=== PATIENT | female | born 1955 | race Caucasian/White ===

== ENCOUNTER 2017-07-01 14:05 | Emergency (ER) | payer OTHER ==
[~2017-07-01] VITALS: Ht 154.9 cm; Wt 47.6 kg
[~2017-07-01 14:05] MED LIST: B Complex1 EAC2 PO; FAMO10 PO; HYDCHL25; HYDCHL25 PO; Hydrochlorothia25 MG PO; LEVFLO500 PO; MAGCHL64ER PO; METO25ER PO; METO50 PO; METO50ER; OMEP20ER PO; PHENA200 PO; RAMI5; THIA100 PO; TRAZ100; VITAMIN D-32000 UNIT PO
[2017-07-01 15:49] LABS: BASOPHILS ABSOLUTE AUTO 0.03 K/mm3 (0.00-0.23); BASOPHILS PERCENT AUTO 1 % (0-2); EOSINOPHILS ABSOLUTE AUTO 0.09 K/mm3 (0.00-0.68); EOSINOPHILS PERCENT AUTO 2 % (0-6); Hematocrit 24.5 % (33.0-51.0); Hemoglobin 8.6 g/dL (11.5-16.0); IMMATURE GRAN ABSOLUTE AUTO 0.02 K/mm3 (0.00-0.10); IMMATURE GRAN PERCENT AUTO 0 % (0-1); LYMPHOCYTES ABSOLUTE AUTO 0.98 K/mm3 (0.84-5.20); LYMPHOCYTES PERCENT AUTO 17 % (21-46); MONOCYTES ABSOLUTE AUTO 0.54 K/mm3 (0.16-1.47); MONOCYTES PERCENT AUTO 9 % (4-13); Mean Corpuscular HGB 37.9 pg (26.0-34.0); Mean Corpuscular HGB Conc 35.1 g/dL (31.5-36.5); Mean Corpuscular Volume 108 fL (80-100); Mean Platelet Volume 10.8 fL (9.1-12.4); NEUTROPHILS ABSOLUTE AUTO 4.16 K/mm3 (1.96-9.15); NEUTROPHILS PERCENT AUTO 72 % (41-73); Platelet Count 76 K/mm3 (150-400); RDW Coefficient Variation 12.3 % (11.7-14.2); RDW Standard Deviation 48.6 fL (35.1-46.3); Red Blood Cell Count 2.27 M/mm3 (3.80-5.20); White Blood Cell Count 5.82 K/mm3 (4.00-11.30)
[2017-07-01 16:17] LABS: Alanine Aminotransfer (ALT/SGP 43 U/L (12-78); Albumin, Blood 3.3 g/dL (3.4-5.0); Albumin/Globulin Ratio 0.8 (0.8-1.8); Alk Phos 147 U/L (50-136); Anion Gap 11 mmol/L (6-16); Aspartate Aminotrans (AST/SGOT 128 U/L (12-37); Bilirubin, Total 8.6 mg/dL (0.1-1.0); Blood Urea Nitrogen 9 mg/dL (8-24); CO2, Blood 24 mmol/L (21-32); Chloride, Blood 94 mmol/L (98-108); Creatinine, Blood 0.64 mg/dL (0.40-1.00); Globulin, Blood 4.3 g/dL (2.2-4.0); Glomerular Filtration Rate >60 (60-); Glucose, Blood 94 mg/dL (70-99); Potassium, Blood 3.9 mmol/L (3.5-5.5); Sodium, Blood 129 mmol/L (136-145); Total Protein, Blood 7.6 g/dL (6.4-8.2)
[2017-07-01 17:22] LABS: Bilirubin, Urine Neg (Neg); Blood, Urine Neg (Neg); Glucose Qualitative, Urine Neg (Neg); Ketones, Urine Neg (Neg); Leukocyte Esterase, Urine 1+ (Neg); Nitrite, Urine Neg (Neg); Protein, Urine Neg (Neg); Specific Gravity, Urine 1.005 (1.003-1.022); Urobilinogen, Urine NORM (Normal)
[2017-07-01 17:30] LABS: Appearance, Urine Clear (Clear); Color, Urine Yellow (P-Yellow)
[2017-07-01 17:31] LABS: Bacteria Few /hpf; Red Blood Cells, Urine 0-2 /hpf (0-2); Squamous Epithelial Cells Few /hpf (Few)
[2017-07-01] MEDS ORDERED: Zofran Odt8 MG SL (22:42)
[2017-07-01 23:19] LABS: International Normalized Ratio 1.78; Prothrombin Time Results 18.8 Sec (9.7-11.5)
[2018-03-31] MEDS ORDERED: Hair, Skin & N1 EACH PO (12:56)
[2018-03-31] MEDS ORDERED: LOSARTAN POTAS100 MG PO (12:57)
[2018-03-31] MEDS ORDERED: ACID REDUCER 1150 MG PO (12:57)
[2018-03-31] MEDS ORDERED: Vitamin D400 UNI1 PO (12:58)
[2018-03-31] MEDS ORDERED: Ferrous Sulfat325 M2 (12:59)
[2018-03-31] MEDS ORDERED: CHOL10002 (13:00)
[2018-03-31] MEDS ORDERED: CYAN500 (13:01)
[2018-03-31] MEDS ORDERED: FISH OIL 1,001000 MG (13:01)
== END 2017-07-01 23:10 | disposition home or self-care (01) ==
LOC: ER 14:05
PROVIDERS: Emergency Medicine
DX: K70.9 Alcoholic liver disease, unspecified (principal); D64.9 Anemia, unspecified; D69.6 Thrombocytopenia, unspecified; Z79.899 Other long term (current) drug therapy; Z90.49 Acquired absence of other specified parts of digestive tract
CPT/HCPCS: 36415; 71046; 74177; 80053; 81001; 83690; 85025; 85610; 85730; 87086; 96360; 99284; G0480; J7030; Q9967

== ENCOUNTER 2017-09-14 11:56 | Day surgery (SDC) | payer OTHER ==
[~2017-09-14] VITALS: Ht 154.9 cm; Wt 50.4 kg
[~2017-09-14 11:56] MED LIST changes: +Zofran Odt8 MG SL
[2017-09-14] MEDS ORDERED: LOSA25 (12:28)
[2017-09-14] MEDS ORDERED: IRON150C (12:29)
[2017-09-14] MEDS ORDERED: RANI150EL (12:29)
[2017-09-14] MEDS ORDERED: HYDPAM50 (12:29)
== END 2017-09-14 15:00 | disposition home or self-care (01) ==
LOC: ORSCSDS 11:56
PROVIDERS: Internal Medicine Gastroenterology
PROC: 0DB48ZX Excision of Esophagogastric Junction, Via Natural or Artificial Opening Endoscopic, Diagnostic (ICD-10-PCS; principal; 2017-09-14 13:30)
DX: K70.30 Alcoholic cirrhosis of liver without ascites (principal); B37.81 Candidal esophagitis; K76.6 Portal hypertension; K31.89 Other diseases of stomach and duodenum; K44.9 Diaphragmatic hernia without obstruction or gangrene; K22.2 Esophageal obstruction; I10 Essential (primary) hypertension; Z87.891 Personal history of nicotine dependence; Z79.899 Other long term (current) drug therapy
CPT/HCPCS: 88305; 88312; J7120

== ENCOUNTER → 2019-12-14 | Outpatient (CLI) | payer OTHER ==
[~2019-12-14] MED LIST changes: +ACID REDUCER 1150 MG PO; +Aldactone100 MG PO; +CHOL10002; +CYAN500; +FISH OIL 1,001000 MG; +FURO20 PO; +Ferrous Sulfat325 M2; +HYDPAM50; +Hair, Skin & N1 EACH PO; +IRON150C; +LOSA25; +LOSARTAN POTAS100 MG PO; +RANI150EL; +Vitamin D400 UNI1 PO; +ZOLP10 PO
[2019-12-14 09:40] LABS: Source, Urine Clean Catch
[2019-12-14 12:58] LABS: Bilirubin, Urine Neg (Neg); Blood, Urine Neg (Neg); Glucose Qualitative, Urine Neg (Neg); Ketones, Urine Neg (Neg); Leukocyte Esterase, Urine Neg (Neg); Nitrite, Urine Neg (Neg); Protein, Urine Neg (Neg); Specific Gravity, Urine 1.005 (1.003-1.022); Urobilinogen, Urine NORM (Normal)
[2019-12-14 13:08] LABS: Appearance, Urine Clear (Clear); Color, Urine Yellow (P-Yellow)
== END | disposition home or self-care (01) ==
LOC: LAB SHORT 09:37 → LAB 09:37
PROVIDERS: Internal Medicine Gastroenterology
DX: R10.31 Right lower quadrant pain (principal); R10.32 Left lower quadrant pain
CPT/HCPCS: 81003

== ENCOUNTER 2019-12-31 11:30 | Day surgery (SDC) | payer OTHER ==
[~2019-12-31] VITALS: Ht 154.9 cm; Wt 48.6 kg
--- NOTE | 2019-12-31 13:57 | NUR ---
12/31/19 1357 Sloane Cole PT SITTING COMFORTABLY IN CHAIR WITH ASHWINI AT SIDE. BP MAINTAINING 89/52, NO SYMPTOMS. WILL CONTINUE TO MONITOR
== END 2019-12-31 14:15 | disposition home or self-care (01) ==
LOC: ORSCSDS 11:30
PROVIDERS: Internal Medicine Gastroenterology
PROC: 0DB68ZX Excision of Stomach, Via Natural or Artificial Opening Endoscopic, Diagnostic (ICD-10-PCS; principal; 2019-12-31 13:00)
DX: K74.69 Other cirrhosis of liver (principal); K25.9 Gastric ulcer, unspecified as acute or chronic, without hemorrhage or perforation; K29.80 Duodenitis without bleeding; K76.6 Portal hypertension; K31.89 Other diseases of stomach and duodenum; Z13.810 Encounter for screening for upper gastrointestinal disorder; D69.6 Thrombocytopenia, unspecified; Z87.891 Personal history of nicotine dependence; Z79.899 Other long term (current) drug therapy
CPT/HCPCS: 87081; J2250; J2704; J7120

== ENCOUNTER 2020-11-26 12:25 | Inpatient (IN) | payer OTHER ==
[~2020-11-26] VITALS: Ht 160 cm; Wt 58.4 kg
[~2020-11-26 12:25] MED LIST changes: +ALDACTONE100 MG PO; +CONSTULOSE10 GM/155 PO
[2020-11-26 13:35] LABS: BASOPHILS ABSOLUTE AUTO 0.04 K/mm3 (0.00-0.23); BASOPHILS PERCENT AUTO 0 % (0-2); EOSINOPHILS ABSOLUTE AUTO 0.22 K/mm3 (0.00-0.68); EOSINOPHILS PERCENT AUTO 1 % (0-6); IMMATURE GRAN ABSOLUTE AUTO 0.17 K/mm3 (0.00-0.10); IMMATURE GRAN PERCENT AUTO 1 % (0-1); LYMPHOCYTES ABSOLUTE AUTO 1.26 K/mm3 (0.84-5.20); LYMPHOCYTES PERCENT AUTO 8 % (21-46); MONOCYTES ABSOLUTE AUTO 1.82 K/mm3 (0.16-1.47); MONOCYTES PERCENT AUTO 11 % (4-13); Mean Corpuscular HGB 30.7 pg (26.0-34.0); Mean Corpuscular HGB Conc 31.6 g/dL (31.5-36.5); Mean Corpuscular Volume 97 fL (80-100); Mean Platelet Volume 10.2 fL (9.1-12.4); NEUTROPHILS ABSOLUTE AUTO 13.08 K/mm3 (1.96-9.15); NEUTROPHILS PERCENT AUTO 79 % (41-73); NRBC ABSOLUTE 0.11 K/mm3 (0.00-0.02); NRBC Auto 0.7 /100 WBC (0.0-0.2); Platelet Count 188 K/mm3 (150-400); RDW Coefficient Variation 15.1 % (11.7-14.2); RDW Standard Deviation 52.8 fL (35.1-46.3); Red Blood Cell Count 1.37 M/mm3 (3.80-5.20); White Blood Cell Count 16.59 K/mm3 (4.00-11.30)
[2020-11-26 13:38] LABS: Base Excess Venous -9.4 mmol/L; Bicarbonate Venous 17.2 mmol/L (24.0-30.0); PCO2 Venous 28.3 mmHg (38-42); PO2 Venous 132 mmHg (38-42); pH Blood Venous 7.36 (7.34-7.37)
[2020-11-26] MEDS ORDERED: NAPR500 PO (13:39)
[2020-11-26 13:41] LABS: Hemoglobin 4.2 g/dL (11.5-16.0)
[2020-11-26 13:42] LABS: Hematocrit 13.3 % (33.0-51.0)
[2020-11-26] MEDS ORDERED: BACLOFEN10 M4 PO (13:46)
[2020-11-26] MEDS ORDERED: FUROSEMIDE20 MG PO (13:47)
[2020-11-26] MEDS ORDERED: SPIRONOLACTONE50 MG PO (13:47)
[2020-11-26 13:54] LABS: International Normalized Ratio 1.55; Prothrombin Time Results 16.3 Sec (9.7-11.5)
[2020-11-26 14:09] LABS: Albumin/Globulin Ratio 0.7 (0.8-1.8); Bilirubin, Total 2.1 mg/dL (0.1-1.0); Bun/Creatinine Ratio 41.9 (12.0-20.0); Calcium, Blood 7.6 mg/dL (8.5-10.1); Creatinine, Blood 1.29 mg/dL (0.40-1.00); Globulin, Blood 2.9 g/dL (2.2-4.0); Potassium, Blood 6.7 mmol/L (3.5-5.5); Total Protein, Blood 4.9 g/dL (6.4-8.2)
--- NOTE | 2020-11-26 18:08 | NUR ---
ARRIVAL TO ICU PT ARRIVES TO ICU FROM ER FOR ACUTE ANEMIA AT 1717. PT A&OX 4. ANSWERS ALL QUESTIONS APPROPRIATELY, FOLLOWS COMMANDS. REPORTS INCREASED WEAKNESS AND SOB X 2 DAYS. HX OF ETOH CIRRHOSIS, LAST ETOH 1 YEAR AGO. PT REPORTS DARK EMESIS AND STOOL YESTERDAY. STATES ABD PAIN 8/10. ABD DISTENDED, FIRM, BT X 4. PT REPORTS DISTENTION NORMAL. PT PALE c SLIGHT JAUNDICE NOTED. REPORTS NAUSEA, NO RELIEF FROM ZOFRAN IN ER. PT STATES NOTHING RESOLVES NAUSEA, CLEAR LIQUID DIET, ICE CHIPS PROVIDED. 2 UNITS PRBC TRANSFUSED IN ER, LABS PENDING. POWERGLIDE PLACED TO LUE, PIV X 2. PROTONIX AND OCTREOTITE GTT INFUSING. BP STABLE. NSR, RATE 70'S. WILL CONTINUE TO MONITOR UNTIL REPORT TO ONCOMING NURSE.
[2020-11-26 18:17] LABS: Hematocrit 20.8 % (33.0-51.0); Hemoglobin 6.9 g/dL (11.5-16.0)
[2020-11-26 19:38] LABS: Bun/Creatinine Ratio 50.4 (12.0-20.0); Calcium, Blood 7.4 mg/dL (8.5-10.1); Creatinine, Blood 1.19 mg/dL (0.40-1.00); Potassium, Blood 6.5 mmol/L (3.5-5.5)
[2020-11-26 23:22] LABS: Source, Urine Clean Catch
[2020-11-26 23:24] LABS: Bilirubin, Urine Neg (Neg); Blood, Urine 5+ (Neg); Glucose Qualitative, Urine Neg (Neg); Ketones, Urine 1+ (Neg); Leukocyte Esterase, Urine 3+ (Neg); Nitrite, Urine Pos (Neg); Protein, Urine 2+ (Neg); Specific Gravity, Urine 1.015 (1.003-1.022); Urobilinogen, Urine 1+ (Normal)
[2020-11-26 23:27] LABS: Appearance, Urine Cloudy (Clear); Color, Urine Brown (P-Yellow)
[2020-11-26 23:41] LABS: Amorphous Mod (0-Heavy); Bacteria Many /hpf; Squamous Epithelial Cells Mod /hpf (Few)
--- NOTE | 2020-11-26 23:46 | NUR ---
SUMMARY FROM 1900, PT RECEIVED FROM SAQIB NEIL. PT WITH OCTREOTIDE AND PROTONIX INFUSING IN EACH FOREARM. BLOOD RETURNED AN ELEVATED POTASSIUM AND CALL WAS MADE TO , ORDERS RECEIVED. MEDICATIONS ADMINISTERED. PT CONTINUES WITH NAUSEA, ABDOMEN LARGE DISTENDED AND TENDER, ACTIVE BOWEL TONES, HAS BEEN INCONTINENT OF STOOL X 2, LIQUID MELENA. CRAMPING ABDOMEN, PT STATES PT WAS COMPLAINING OF LEGS BEING RESTLESS, SHE IS CURRENTLY SLEEPING. ONE UNIT OF PRBC'S IS NEARLY COMPLETE. SIPS OF ICE CHIPS BEING TAKEN. COLOR PALE, MOANS A LOT. MOVES SELF FITFULLY ALL OVER THE BED. LAB REDRAW OF K+ WNL.
[2020-11-27 04:47] LABS: BASOPHILS ABSOLUTE AUTO 0.04 K/mm3 (0.00-0.23); BASOPHILS PERCENT AUTO 1 % (0-2); EOSINOPHILS ABSOLUTE AUTO 0.17 K/mm3 (0.00-0.68); EOSINOPHILS PERCENT AUTO 2 % (0-6); Hematocrit 19.9 % (33.0-51.0); Hemoglobin 6.7 g/dL (11.5-16.0); IMMATURE GRAN ABSOLUTE AUTO 0.04 K/mm3 (0.00-0.10); IMMATURE GRAN PERCENT AUTO 1 % (0-1); LYMPHOCYTES ABSOLUTE AUTO 0.82 K/mm3 (0.84-5.20); LYMPHOCYTES PERCENT AUTO 11 % (21-46); MONOCYTES ABSOLUTE AUTO 1.16 K/mm3 (0.16-1.47); MONOCYTES PERCENT AUTO 15 % (4-13); Mean Corpuscular HGB 29.3 pg (26.0-34.0); Mean Corpuscular HGB Conc 33.7 g/dL (31.5-36.5); Mean Platelet Volume 9.6 fL (9.1-12.4); NEUTROPHILS ABSOLUTE AUTO 5.53 K/mm3 (1.96-9.15); NEUTROPHILS PERCENT AUTO 71 % (41-73); NRBC ABSOLUTE 0.02 K/mm3 (0.00-0.02); NRBC Auto 0.3 /100 WBC (0.0-0.2); Platelet Count 57 K/mm3 (150-400); RDW Coefficient Variation 16.1 % (11.7-14.2); Red Blood Cell Count 2.29 M/mm3 (3.80-5.20); White Blood Cell Count 7.76 K/mm3 (4.00-11.30)
[2020-11-27 04:56] LABS: Mean Corpuscular Volume 87 fL (80-100)
[2020-11-27 05:08] LABS: Bun/Creatinine Ratio 50.8 (12.0-20.0); Calcium, Blood 7.7 mg/dL (8.5-10.1); Creatinine, Blood 1.22 mg/dL (0.40-1.00); Potassium, Blood 4.9 mmol/L (3.5-5.5)
--- NOTE | 2020-11-27 05:58 | NUR ---
AM LABS OBTAINED, CALL TO WITH RESULTS, ANOTHER UNIT OF PRBC ORDERED PT INCONTINENT AGAIN OF BOWEL/BLADDER. CONTINUES WITH MELENA. SHE WAS ABLE TO REST SOME TONIGHT, CONTINUES WITH PANTOPRAZOLE @ 10ML/HR AND OCTREOTIDE @ 25 ML/HR.
--- NOTE | 2020-11-27 07:30 | NUR ---
ASSUMED CARE: PT RESTING IN BED, UNIT OF BLOOD RUNNING. OCTREOTIDE AND PROTONIX GTTS RUNNING. NSR IN 60S AT THIS TIME. NO ACUTE NEEDS OR CONCERNS.
[2020-11-27 11:16] LABS: Hematocrit 23.1 % (33.0-51.0); Hemoglobin 7.9 g/dL (11.5-16.0)
[2020-11-27 14:03] LABS: SARS-Cov-2 (COVID-19) PCR, MMC POSITIVE (NEGATIVE)
--- NOTE | 2020-11-27 14:22 | NUR ---
PT HAD PREPROCEDURE COVID TEST DONE AND HAD POSITIVE RESULT. SPOKE WITH DR SCHRADER AND DAY SURGERY AWARE. DRIER HELPER AND NURSING FUGITIVE INVESTIGATOR AWARE AND PT WILL BE TRANSFERRED TO ROOM ICU 12 ONCE CLEAN
--- NOTE | 2020-11-27 15:12 | NUR ---
11/27/20 1512 Anand Britton History, Chart, Medications and Allergies reviewed before start of procedure. MONITOR INTACT WITH CONTINUOUS PULSE OXIMETRY AND INTERMITTENT BP. EKG MONITORED DURING PROCEDURE. O2 VIA N/C INTACT THROUGHOUT SEDATION/PROCEDURE. Bite Block Placed. POM MASK USED. See Anesthesia record/DR MCINTOSH. PT MOVED FROM ICU 10 TO ICU 12.
--- NOTE | 2020-11-27 15:47 | NUR ---
DR CANO AND DAY SURGERY CREW CAME TO DO EGD AT BEDSIDE WITH ANESTHESIA ASSISTANCE. DR CAUTERIZED ULCER DURING PROCEDURE AND INSTRUCTED FOR SANDOSTATIN TO BE DC'D BUT PROTONIX GTT CONTINUED. DR SCHRADER HAS BEEN GIVEN UPDATE WELL.
[2020-11-27 18:05] LABS: Hematocrit 23.4 % (33.0-51.0); Hemoglobin 7.9 g/dL (11.5-16.0)
--- NOTE | 2020-11-27 18:07 | NUR ---
SHIFT SUMMARY: DR CANO CAME IN AND DID AN EGD ON PT FINDING AN ULCER THAT NEEDED CAUTERY. FAMILY AWARE. PT'S PREPROCEDURE COVID PCR CAME BACK POSITIVE FOR COVID BUT PT IS ASYMPTOMATIC. NO NEW ORDERS OR TREATMENT FOR THIS AT THIS TIME. PT HAS HAD SEVERAL MAROON, TARRY STOOLS TODAY. RESTING FREQUENTLY, MEDICATED FOR PAIN X1. NO FURTHER NEEDS AT THIS TIME.
--- NOTE | 2020-11-27 21:14 | NUR ---
SHIFT ASSESSMENT ASSUMED CARE OF PT @ 1900. REPORT RECEIVED FROM SAQIB JULIAN. PT ALERT AND ORIENTED, MOVING ALL EXTREMITIES, FOLLOWING COMMANDS. VSS. PROTONIX GTT INFUSING. ABDOMEN DISTENDED, ACTIVE BOWEL TONES, INCONTINENT OF LOOSE STOOL. ATTENDS IN PLACE. CLEAR LIQUID DIET. CALL LIGHT IN REACH, WILL CONTINUE TO MONITOR.
[2020-11-28 03:44] LABS: Hematocrit 22.6 % (33.0-51.0); Hemoglobin 7.6 g/dL (11.5-16.0); Mean Corpuscular HGB 29.8 pg (26.0-34.0); Mean Corpuscular HGB Conc 33.6 g/dL (31.5-36.5); Mean Corpuscular Volume 89 fL (80-100); NRBC ABSOLUTE 0.03 K/mm3 (0.00-0.02); NRBC Auto 0.4 /100 WBC (0.0-0.2); RDW Coefficient Variation 16.3 % (11.7-14.2); RDW Standard Deviation 52.3 fL (35.1-46.3); Red Blood Cell Count 2.55 M/mm3 (3.80-5.20); White Blood Cell Count 8.33 K/mm3 (4.00-11.30)
[2020-11-28 03:55] LABS: Platelet Count 48 K/mm3 (150-400)
[2020-11-28 03:57] LABS: International Normalized Ratio 1.65; Prothrombin Time Results 17.3 Sec (9.7-11.5)
[2020-11-28 04:02] LABS: Albumin, Blood 3.6 g/dL (3.4-5.0); Albumin/Globulin Ratio 2.4 (0.8-1.8); Bilirubin, Total 5.7 mg/dL (0.1-1.0); Calcium, Blood 7.7 mg/dL (8.5-10.1); Creatinine, Blood 1.07 mg/dL (0.40-1.00); Globulin, Blood 1.5 g/dL (2.2-4.0); Potassium, Blood 3.9 mmol/L (3.5-5.5); Total Protein, Blood 5.1 g/dL (6.4-8.2)
--- NOTE | 2020-11-28 05:47 | NUR ---
SHIFT SUMMARY NO SIGNIFICANT ACUTE CHANGES FROM PREVIOUS NOTE. PT REMAINS ALERT AND ORIENTED. TWO INCONTINENT BM'S DURING THE NIGHT. STOOL LOOSE, NO APPARENT BLOOD PRESENT. PROTONIX GTT CONTINUES. PT C/O BACK/ ABD PAIN. TREATED c PRN PAIN MEDS. OXYGEN SATURATIONS DROPPING TO HIGH 80'S WHILE SLEEPING, 2LPM O2 VIA NC PLACED WHILE SLEEPING c SATS >95%. WILL CONTINUE TO MONITOR CLOSELY.
--- NOTE | 2020-11-28 09:44 | NUR ---
ASSUMED CAER AT 0700, REPORT FROM SAQIB GONZALES. SLEEPING WITHOUT SIGNS/SYMPTOMS OF DISTERSS. 2L O2 VIA NC. PROTONIX GTT INFUSING AT 10ML/HR. NS INFUSING. AWAKES WHEN ENTERING ROOM. ASSISTED TO BEDPAN. VSS. WILL CONTINUE TO MONITOR.
--- NOTE | 2020-11-28 17:39 | NUR ---
SHIFT SUMMARY; ASSUMED CARE AT 0700 FROM JANET CERRATO. A/A/OX4 THROUGH DAY. REPOSITIONS SELF IN BED NEEDED. ASSISTED WITH BED CORONA DURING SHIFT. NO STOOL OR RECTAL BLEEDING. MEDICATED FOR ABD PAIN PER EMAR. PROTONIX INFUSING AT 10ML/HR. NS AT 50ML/HR. NO ACUTE MEDICAL CHANGES DURING SHIFT. WILL CONTINUE TO TREAT AND MONITOR UNTIL CHANGE OF SHIFT.
--- NOTE | 2020-11-28 21:04 | NUR ---
SHIFT ASSESSMENT ASSUMED CARE OF PT @ 1900. REPORT RECEIVED FROM SAQIB MONTERO. PT ALERT AND ORIENTED, FOLLOWING DIRECTIONS, BUT VERY WEAK. SITTING UPRIGHT IN BED C/O MODERATE ABD/ BACK PAIN. MEDICATED PER JUL. PROTONIX GTT INFUSING. ATTENDS IN PLACE FOR OCCASIONAL INCONTINENT LOOSE STOOL. NO C/O OF SOB BUT SATS DROP WHILE SLEEPING, NC O2 ON SB. VSS, WILL CONTINUE TO MONITOR CLOSELY.
[2020-11-29 06:19] LABS: Hematocrit 24.4 % (33.0-51.0); Mean Corpuscular HGB Conc 32.8 g/dL (31.5-36.5); Mean Corpuscular Volume 91 fL (80-100); Mean Platelet Volume 9.4 fL (9.1-12.4); RDW Coefficient Variation 16.6 % (11.7-14.2); RDW Standard Deviation 53.5 fL (35.1-46.3); Red Blood Cell Count 2.67 M/mm3 (3.80-5.20); White Blood Cell Count 13.59 K/mm3 (4.00-11.30)
--- NOTE | 2020-11-29 06:22 | NUR ---
SHIFT SUMMARY PT REMAINS ALERT AND ORIENTED. ABLE TO ASSIST WITH TURNS, REMAINS WEAK. ABLE TO VOID INTO BEDPAN. NO LOOSE STOOL THIS SHIFT. PLACED ON 2LPM O2 VIA NC WHILE SLEEPING c SATS >90%. NO SIGNIFICANT CHANGES IN PT CONDITION. WILL CONTINUE TO MONITOR CLOSELY.
[2020-11-29 06:50] LABS: Anion Gap 9 mmol/L (6-16); Blood Urea Nitrogen 37 mg/dL (8-24); Bun/Creatinine Ratio 39.9 (12.0-20.0); CO2, Blood 17 mmol/L (21-32); Chloride, Blood 110 mmol/L (98-108); Creatinine, Blood 0.93 mg/dL (0.40-1.00); Glomerular Filtration Rate >60 (60-); Glucose, Blood 109 mg/dL (70-99); Magnesium, Blood 2.3 mg/dL (1.6-2.4); Phosphorus, Blood 3.4 mg/dL (2.5-4.9); Potassium, Blood 4.3 mmol/L (3.5-5.5); Sodium, Blood 136 mmol/L (136-145)
[2020-11-29 06:58] LABS: BAND PERCENT MAN 15 % (0-8); BASOPHILS PERCENT MAN 0 % (0-2); EOSINOPHILS PERCENT MAN 0 % (0-6); LYMPHOCYTES PERCENT MAN 3 % (21-46); MONOCYTES PERCENT MAN 5 % (4-13); SEG NEUTROPHILS PERCENT MAN 77 % (41-73); TOTAL CELLS COUNTED 100
[2020-11-29 07:02] LABS: EOSINOPHILS ABSOLUTE AUTO 0.04 K/mm3 (0.00-0.68); EOSINOPHILS PERCENT AUTO 0 % (0-6); IMMATURE GRAN ABSOLUTE AUTO 0.06 K/mm3 (0.00-0.10); IMMATURE GRAN PERCENT AUTO 0 % (0-1); NEUTROPHILS ABSOLUTE AUTO 12.14 K/mm3 (1.96-9.15); NEUTROPHILS PERCENT AUTO 89 % (41-73); Platelet Count 50 K/mm3 (150-400)
--- NOTE | 2020-11-29 08:30 | NUR ---
INITIAL ASSESSMENT PATIENT ALERT AND ORIENTED X 4. PATIENT LETHARGIC AND VERY WEAK. PATIENT HAS FLAT AFFECT. COOPERATIVE. SCLERA JAUNDICED. PATIENT AFEBRILE. PATIENT COMPLAINS OF PAIN IN MID EPIGASTRIC REGION. PATIENT ON 2 L NC TO KEEP SATS 90% AND GREATER. TRIALED RA BUT PATIENT DESATTED TO 86%. PATIENT HAS NONPRODUCTIVE, CONGESTED COUGH. EXPIRATORY WHEEZES NOTED T/O ALL LUNG LOBES. PATIENT IN SR, HR 70S TO 80S. SBP 120S TO 140S. SEVERE ABDOMINAL DISTENTION NOTED. ABD FIRM; TYMPANIC BOWEL SOUNDS NOTED. WNL; PATIENT BEING ASSISTED WITH USE OF BED CORONA. SKIN PALE. PATIENT SHIFTING OWN HIPS. NS INFUSING AT 50 MLS/ HOUR. PROTONIX INFUSING AT 10 MLS/ HOUR. BED LOW, CALL LIGHT IN REACH. WILL CONTINUE TO MONITOR PATIENT FREQUENTLY THROUGHOUT SHIFT.
--- NOTE | 2020-11-29 12:27 | NUR ---
PATIENT AFEBRILE. PATIENT REMAINS SATTING 90% AND GREATER ON RA. LUNGS REMAIN WHEEZY. HR 70S TO 80S. SBP 1-TEENS TO 140S. NO OTHER ACUTE CHANGES TO NOTE ON AT THIS TIME.
--- NOTE | 2020-11-29 12:30 | NUR ---
DR. ANTUNEZ CALLED TO UPDATE ON PATIENT STATUS. WANT TO INFORM THAT PATIENT LUNGS WHEEZY AND THAT ON 2 L NC TO KEEP SATS 90% AND GREATER. WANT TO INFORM THAT WBCS INCREAING. WANT TO ASK FOR PT/ OT. WANT TO ASK IF OKAY TO MAKE PATIENT ACTIVITY AD KYLE. WANT TO INFORM ABOUT PATIENT'S MID EPIGASTRIC PAIN AND DISTENTION. LEFT MESSAGE AND WAITING TO FOR CALL BACK.
--- NOTE | 2020-11-29 13:13 | NUR ---
REPORT GIVEN TO ASSUMING NURSE, REAGAN BELL.
--- NOTE | 2020-11-29 13:15 | NUR ---
ASSUMED CARE OF PATIENT. REPORT RECEIVED FROM SAQIB BENJAMIN. CALLED DR. IRVIN TO DISCUSS POC. PLAN IS FOR MEDICAL STATUS, DR. IRVIN STATES TO DISCONTINUE TELE. PER PREVIOUS RN, PATIENT IS WHEEZY AND IS UNABLE TO BE WEANED OFF 2L O2 VIA NC. DR. IRVIN STATES TO ORDER 2 VIEW CHEST XRAY, STATES 1 VIEW CHEST XRAY IS ACCEPTABLE IF XRAY DOES NOT WANT PATIENT TO COME DOWN FOR 2 VIEW DUE TO PATIENT BEING COVID POSITIVE. ORDERS RECEIVED FOR BREATHING TREATMENT PRN, NOTIFIED RESPIRATORY THERAPY. NOTIFIED HER OF PATIENT'S POSITIVE URINE CULTURE, PATIENT IS ON ROCEPHIN AND DR. IRVIN STATES SHE IS OK WITH THAT. ORDERS RECEIVED FOR ACTIVITY AD KYLE, STATES WE WILL SEE HOW PATIENT DOES WITH ACTIVITY AD KYLE AND THEN MAYBE ORDER PT/OT.
--- NOTE | 2020-11-29 15:30 | NUR ---
REPORT GIVEN TO SAQIB PICKENS ON MEDICAL FLOOR. PATIENT TRANSFERRED VIA BED BY TECH. CESAR MARTINEZ AT BEDSIDE AND WALKING TO MEDICAL FLOOR WITH PATIENT. BELONGINGS SENT WITH PATIENT. NO FURTHER QUESTIONS AT TIME OF TRANSFER.
--- NOTE | 2020-11-29 18:49 | NUR ---
SHIFT SUMMARY ICU TRANSFER THIS AFTERNOON. PATIENT ABLE TO STAND AND TRANSFER FROM RORIENT TO BED. PATIENT'S ABDOMEN TIGHT AND DISTENDED. 2L/NC TO MAINTAIN OXYGEN SATURATION ABOVE 92%. PROTONIX DRIP RUNNING. PATIENT NPO. XRAY AND CT OF ABDOMEN REVEAL PERFORATED VISCOUS AND PNEUMOPERITONEUM. [facility]SF[facility] TO [facility].
--- NOTE | 2020-11-29 20:57 | NUR ---
REPORT TO SAQIB SCHWARTZ AT [facility] IN [place]. QUESTIONS ANSWERED AND NUMBER GIVEN FOR ADDITIONAL QUESTIONS UPON PATIENTS ARRIVAL TO HIGHER LEVEL OF CARE ([facility]),
--- NOTE | 2020-11-29 22:42 | NUR ---
PATIENT PICKED UP BY EMS TRANSPORT TO BE TAKEN TO [facility]. [facility] OF [place] GIVEN PRIOR TO DISCHARGE FOR ABD AND LOW BACK PAIN AND PRESSURE.
== END 2020-11-29 22:45 | disposition short-term general hospital (02) | DRG 377 ==
LOC: ER 12:25 → ICUW 15:22 → MEDS 15:22 → ICUW 16:17 → MEDS 11-29 15:34
PROVIDERS: Emergency Medicine; Internal Medicine; Student in an Organized Health Care Education/Training Program; ADMIT Internal Medicine
PROC: 30233N1 Transfusion of Nonautologous Red Blood Cells into Peripheral Vein, Percutaneous Approach (ICD-10-PCS; 2020-11-26)
PROC: 0W3P8ZZ Control Bleeding in Gastrointestinal Tract, Via Natural or Artificial Opening Endoscopic (ICD-10-PCS; principal; 2020-11-27 14:30)
DX: K25.4 Chronic or unspecified gastric ulcer with hemorrhage (principal); U07.1 COVID-19; D62 Acute posthemorrhagic anemia; N17.9 Acute kidney failure, unspecified; E87.2 Acidosis; E87.1 Hypo-osmolality and hyponatremia; N39.0 Urinary tract infection, site not specified; K76.6 Portal hypertension; E87.5 Hyperkalemia; D69.6 Thrombocytopenia, unspecified; K20.90 Esophagitis, unspecified without bleeding; D72.829 Elevated white blood cell count, unspecified; K31.89 Other diseases of stomach and duodenum; K26.4 Chronic or unspecified duodenal ulcer with hemorrhage; B96.20 Unspecified Escherichia coli [E. coli] as the cause of diseases classified elsewhere; K70.31 Alcoholic cirrhosis of liver with ascites; I10 Essential (primary) hypertension; F17.290 Nicotine dependence, other tobacco product, uncomplicated; M19.90 Unspecified osteoarthritis, unspecified site; Z79.899 Other long term (current) drug therapy; Z90.49 Acquired absence of other specified parts of digestive tract; Z71.6 Tobacco abuse counseling
CPT/HCPCS: 36430; 71045; 74177; 76705; 80048; 80053; 80069; 81001; 82105; 82140; 82272; 82803; 83735; 83880; 84132; 84484; 85014; 85018; 85025; 85027; 85610; 86850; 86900; 86901; 86923; 87077; 87086; 87186; 93005; 93010; 94640; 94760; 96374; 96375; 99285-25; A9270; C1751; C9113; J0171; J0610; J0696; J1430; J1815; J2354; J2405; J2543; J2704; J2765; J3010; J7030; J7050; P9016; P9046; Q9967; U0004